=== PATIENT | female | born 1990 | race African-American/Black ===

== ENCOUNTER 2020-01-02 18:52 | Emergency (ER) | payer SELFPAY ==
[~2020-01-02 18:52] MED LIST: BENADRYL25 MG OR; PRE NATAL VIT
[2020-01-02 19:18] VITALS: BP 144/91
== END 2020-01-02 19:17 | disposition left against medical advice (07) | DRG 204 ==
LOC: ED 18:52 → AMA 19:17 → ED 19:17
DX: R06.02 Shortness of breath (principal); Z91.19 Patient's noncompliance with other medical treatment and regimen

== ENCOUNTER 2020-06-25 23:45 | Emergency (ER) | payer OTHER ==
[~2020-06-25] VITALS: Ht 160 cm; Wt 106.8 kg
[2020-06-26] MEDS ORDERED: METOPROL TAR25 MG PO (00:15)
[2020-06-26] MEDS ORDERED: LEVEMIR100 UNIT/M SC (00:15)
[2020-06-26 00:32] LABS: HEMATOCRIT 39.3 % (37.0-47.0); HEMOGLOBIN 12.4 g/dl (12.0-16.0); IMMATURE GRANULOCYTES 0.2 % (0.0-5.0); MEAN CELL VOLUME 88.5 fL CALC (80.0-100.0); MEAN CORPUSCULAR HGB 27.9 pG CALC (26.0-32.0); MEAN CORPUSCULAR HGB CONC 31.6 g/dL CAL (32.0-36.0); NEUT# 2.36 thou/uL (2.00-7.15); RED BLOOD COUNT 4.44 mill/uL (4.20-5.60)
[2020-06-26 01:36] LABS: ALBUMIN 3.6 g/dL (3.2-5.0); ALKALINE PHOSPHATASE 50 u/l (38-126); ANION GAP 12 (6-22 (CALC)); BILIRUBIN, TOTAL 0.6 mg/dL (0.0-1.4); BUN 15 mg/dL (7-17); BUN/CREATININE RATIO 22 (12-20 (CALC)); CARBON DIOXIDE 28 mmol/l (22-30); CHLORIDE 106 mmol/l (95-108); CREATININE 0.7 mg/dL (0.5-1.0); GFR > 60 ML/MIN (>=60 (CALC)); GFR FOR AFR.AMER. > 60 ML/MIN (>=60 (CALC)); POTASSIUM 4.5 mmol/l (3.5-5.1); SGOT/AST 26 u/l (14-36); SODIUM 141 mmol/l (137-146); TOTAL PROTEIN 6.7 g/dL (6.3-8.2)
[2020-06-26 01:56] LABS: MYOGLOBIN 25 ng/mL (0 - 62)
[2020-06-26] MEDS ORDERED: VOLTAREN75 MG PO (02:07)
[2020-06-26 02:45] VITALS: BP 115/56
== END 2020-06-26 02:45 | disposition home or self-care (01) | DRG 313 ==
LOC: ED 23:45
PROVIDERS: Family Medicine
DX: R07.89 Other chest pain (principal); E11.9 Type 2 diabetes mellitus without complications; I10 Essential (primary) hypertension; Z79.4 Long term (current) use of insulin

== ENCOUNTER 2021-08-24 13:25 | Emergency (ER) | payer OTHER ==
[~2021-08-24] VITALS: Ht 160 cm; Wt 100.0 kg
[~2021-08-24 13:25] MED LIST changes: +LEVEMIR100 UNIT SC; +METOPROL TAR25 MG PO; +VOLTAREN75 MG PO
[2021-08-24 14:28] LABS: IMMATURE GRANULOCYTES 0.1 % (0.0-5.0); MEAN CELL VOLUME 90.5 fL CALC (80.0-100.0); MEAN CORPUSCULAR HGB 28.7 pG CALC (26.0-32.0); MEAN CORPUSCULAR HGB CONC 31.7 g/dL CAL (32.0-36.0); NEUT# 6.83 thou/uL (2.00-7.15); RED BLOOD COUNT 4.53 mill/uL (4.20-5.60); RED CELL DISTRI WIDTH 13.3 % (11.5-15.5)
[2021-08-24 14:36] LABS: ALBUMIN 3.9 g/dL (3.2-5.0); ALKALINE PHOSPHATASE 65 u/l (38-126); ANION GAP 13 (6-22 (CALC)); BILIRUBIN, TOTAL 0.7 mg/dL (0.0-1.4); BUN 9 mg/dL (7-17); BUN/CREATININE RATIO 13 (12-20 (CALC)); CARBON DIOXIDE 27 mmol/l (22-30); CHLORIDE 100 mmol/l (95-108); CPK 68 u/l (30-165); CREATININE 0.7 mg/dL (0.5-1.0); GFR > 60 ML/MIN (>=60 (CALC)); GFR FOR AFR.AMER. > 60 ML/MIN (>=60 (CALC)); POTASSIUM 4.1 mmol/l (3.5-5.1); SGOT/AST 20 u/l (14-36); SODIUM 137 mmol/l (137-146); TOTAL PROTEIN 7.4 g/dL (6.3-8.2)
[2021-08-24] MEDS ORDERED: GLIMEPIRIDE4 MG PO (15:13)
[2021-08-24] MEDS ORDERED: ATORVASTATIN CA10 MG PO (15:13)
[2021-08-24] MEDS ORDERED: MEDROL4 M1 PO (15:13)
[2021-08-24] MEDS ORDERED: LOPRESSOR50 M1 PO (15:14)
[2021-08-24] MEDS ORDERED: HYDROXYCHLOR200 M1 PO (15:14)
[2021-08-24] MEDS ORDERED: TRAMADOL HYDROC50 M1 PO (15:15)
[2021-08-24] MEDS ORDERED: NAPROXEN375 MG PO (15:15)
[2021-08-24] MEDS ORDERED: TERBINAFINE HY250 MG PO (15:15)
[2021-08-24] MEDS ORDERED: LORTAB 1010 MG PO (15:35)
[2021-08-24 15:55] VITALS: BP 114/66
== END 2021-08-24 16:19 | disposition home or self-care (01) | DRG 556 ==
LOC: ED 13:25
PROVIDERS: Emergency Medicine
DX: M79.10 Myalgia, unspecified site (principal); I10 Essential (primary) hypertension; E11.9 Type 2 diabetes mellitus without complications; Z79.4 Long term (current) use of insulin; Z86.718 Personal history of other venous thrombosis and embolism

== ENCOUNTER 2021-09-04 12:40 | Observation (INO) | payer OTHER ==
[~2021-09-04] VITALS: Ht 160 cm; Wt 108.0 kg
[2021-09-04] VITALS (13 sets, daily range): BP systolic 105–146; BP diastolic 65–88
[~2021-09-04 12:40] MED LIST changes: +ATORVASTATIN CA10 MG PO; +GLIMEPIRIDE4 MG PO; +HYDROXYCHLOR200 M1 PO; +LOPRESSOR50 M1 PO; +LORTAB 1010 MG PO; +MEDROL4 M1 PO; +NAPROXEN250 MG PO; +TERBINAFINE HY250 MG PO; +TRAMADOL HYDROC50 M1 PO
[2021-09-04 13:52] LABS: HEMATOCRIT 45.5 % (37.0-47.0); HEMOGLOBIN 14.6 g/dl (12.0-16.0); IMMATURE GRANULOCYTES 0.3 % (0.0-5.0); MEAN CORPUSCULAR HGB 28.6 pG CALC (26.0-32.0); MEAN CORPUSCULAR HGB CONC 32.1 g/dL CAL (32.0-36.0); NEUT# 11.88 thou/uL (2.00-7.15); RED BLOOD COUNT 5.11 mill/uL (4.20-5.60); RED CELL DISTRI WIDTH 12.7 % (11.5-15.5)
[2021-09-04 14:07] LABS: C-REACTIVE PROTEIN 5.9 mg/dL (0-0.9)
[2021-09-04 14:30] LABS: ALBUMIN 3.5 g/dL (3.2-5.0); BILIRUBIN, TOTAL 0.6 mg/dL (0.0-1.4); BUN 20 mg/dL (7-17); BUN/CREATININE RATIO 28 (12-20 (CALC)); CARBON DIOXIDE 26 mmol/l (22-30); CHLORIDE 95 mmol/l (95-108); CREATININE 0.7 mg/dL (0.5-1.0); GFR > 60 ML/MIN (>=60 (CALC)); GFR FOR AFR.AMER. > 60 ML/MIN (>=60 (CALC)); SGOT/AST 21 u/l (14-36); SODIUM 132 mmol/l (137-146); TOTAL PROTEIN 7.2 g/dL (6.3-8.2)
[2021-09-04 14:32] LABS: ANION GAP 16 (6-22 (CALC))
[2021-09-04 14:33] LABS: ALKALINE PHOSPHATASE 109 u/l (38-126)
[2021-09-04] MEDS ORDERED: METOPROL TAR25 M1 PO (16:47)
[2021-09-04] MEDS ORDERED: LEVEMIR100 UNIT SC (16:51)
[2021-09-04] MEDS ORDERED: BACLOFEN10 MG PO (16:54)
[2021-09-05 04:00] VITALS: BP 160/78
[2021-09-05 05:49] LABS: IMMATURE GRANULOCYTES 0.3 % (0.0-5.0); MEAN CELL VOLUME 90.4 fL CALC (80.0-100.0); MEAN CORPUSCULAR HGB 28.7 pG CALC (26.0-32.0); MEAN CORPUSCULAR HGB CONC 31.8 g/dL CAL (32.0-36.0); NEUT# 11.7 thou/uL (2.00-7.15); RED BLOOD COUNT 3.97 mill/uL (4.20-5.60)
[2021-09-05 05:55] LABS: HEMATOCRIT 35.9 % (37.0-47.0); HEMOGLOBIN 11.4 g/dl (12.0-16.0)
[2021-09-05 06:08] LABS: ALBUMIN 2.9 g/dL (3.2-5.0); ALKALINE PHOSPHATASE 80 u/l (38-126); ANION GAP 11 (6-22 (CALC)); BUN 22 mg/dL (7-17); BUN/CREATININE RATIO 39 (12-20 (CALC)); CARBON DIOXIDE 28 mmol/l (22-30); CHLORIDE 99 mmol/l (95-108); CREATININE 0.6 mg/dL (0.5-1.0); GFR > 60 ML/MIN (>=60 (CALC)); GFR FOR AFR.AMER. > 60 ML/MIN (>=60 (CALC)); POTASSIUM 4.7 mmol/l (3.5-5.1); SGOT/AST 17 u/l (14-36); SODIUM 133 mmol/l (137-146); TOTAL PROTEIN 6.3 g/dL (6.3-8.2)
[2021-09-05 06:13] LABS: BILIRUBIN, TOTAL 0.2 mg/dL (0.0-1.4)
[2021-09-05] MEDS ORDERED: CYCLOBENZAPRINE10 MG PO (07:39)
[2021-09-05] MEDS ORDERED: PREDNISONE20 MG PO (07:40)
[2021-09-05] MEDS ORDERED: LOSARTAN POTASS25 MG PO (07:41)
[2021-09-05 08:12] VITALS: BP 131/71
[2021-09-05] MEDS ORDERED: OXYCOD-APAP1 TA1 PO (11:19)
[2021-09-05] MEDS ORDERED: VIBRAMYCIN100 M1 PO (11:20)
== END 2021-09-05 12:56 | disposition home or self-care (01) | DRG 556 ==
LOC: ED 12:40 → ED-I 16:18 → ED 16:44 → MS2 16:45
PROVIDERS: Emergency Medicine; ADMIT Internal Medicine; ATTEND Internal Medicine
DX: M79.671 Pain in right foot (principal); M25.531 Pain in right wrist; L08.9 Local infection of the skin and subcutaneous tissue, unspecified; E11.65 Type 2 diabetes mellitus with hyperglycemia; M06.00 Rheumatoid arthritis without rheumatoid factor, unspecified site; I10 Essential (primary) hypertension; J45.909 Unspecified asthma, uncomplicated; Z79.4 Long term (current) use of insulin; Z79.84 Long term (current) use of oral hypoglycemic drugs; Z86.718 Personal history of other venous thrombosis and embolism; Z79.52 Long term (current) use of systemic steroids; Z20.822 Contact with and (suspected) exposure to COVID-19
CPT/HCPCS: G0378; J1650; Q9967